=== PATIENT | female | born 1985 | race Caucasian/White ===

== ENCOUNTER 2016-08-13 12:07 | Emergency (ER) | payer OTHER ==
[~2016-08-13] VITALS: Ht 157.5 cm; Wt 127.5 kg
[2016-08-13 12:13] VITALS: BP 156/83
--- NOTE | 2016-08-13 12:55 | ED GENERAL ADULT ---
History of Present Illness General Chief Complaint: General Adult Stated Complaint: PT RT FOOT MAY SPRAIN AND SWOLLEN TONSIL Source: patient Exam Limitations: no limitations Vital Signs & Intake/Output Vital Signs & Intake/Output ED Intake and Output 08/14 0000 08/13 1200 Intake Total Output Total Balance Patient 281 lb Weight Allergies Coded Allergies: No Known Allergies (08/13/16) Triage Note: COMPLAINS OF R FOOT PAIN SINCE FRIDAY, DENIES INJURY BUT STTAES THAT SHE HAD BRUISING Triage Nurses Notes Reviewed? yes Onset: Gradual Duration: day(s): (5) Timing: no prior history Injury Environment: home Severity: mild Severity Numbers: 3 Modifying Factors: Improves With: immobilization. Worsens With: movement. : No Patient currently breastfeeds: No HPI: Patient is a 31-year-old female presenting to the emergency department with chief complaint of right-sided sore throat and tonsil enlargement lisping going on for the past 3-4 days as well as right foot pain has been going on for the past 5 days. Denies any injury to the foot. Denies any change in shoes. Symptoms are worse if she standing for long periods of time. Denied taking any Advil or Tylenol to help. Denies icing. No history of similar symptoms in the past. She reports that people in her home have upper respiratory infections currently. She denies any fevers or chills. No trouble swallowing or breathing. No chest pain or shortness of breath. No palpitations. (NAVEED LATHAM) Reconcile Medications Naproxen (Naprosyn) 500 MG TABLET 1 TAB PO BID PRN PAIN (PHILIP LIU,CARINA) Past History Travel History Traveled to [place] past 21 day No Medical History Any Pertinent Medical History? 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 No (NAVEED LATHAM) Review of Systems Review of Systems Constitutional: Reports: no symptoms. Comments Review of systems: See HPI, All other systems negative. Constitutional, no chills fever or weight loss HEENT: No visual changes Cardiovascular: No chest pain Skin, no jaundice no rashes Respiratory: No dyspnea cough sputum or hemoptysis GI: No nausea no vomiting Muscle skeletal: no back pain, no neck pain, Neurologic: No numbness no confusion Psych: No stress anxiety Immunology: No splenectomy or history of AIDS (NAVEED LATHAM) Physical Exam Physical Exam General Appearance: well developed/nourished, no apparent distress, alert, awake , comfortable, obese Comments: Well-developed well-nourished person in no acute distress HEENT: Pupils equally round and reactive to light and accommodation. Nose is atraumatic. External auditory canal and Tympanic membranes clear. Pharynx is mildly erythematous, slight tonsillar enlargement bilaterally, no peritonsillar abscess noted. No exudates. Neck: Supple, no lymphadenopathy, normal range of motion without pain or tenderness Back: Nontender, Cardiovascular: Regular rate and rhythms no murmurs rubs or gallops, normal JVP Respiratory: Chest nontender. No respiratory distress.breath sounds clear to auscultation bilaterally Extremity: No edema, no calf tenderness to palpation, normal and equal pulses. Mild tenderness to palpation of the dorsum of the right foot. No ecchymosis, no erythema or edema noted. Near full range of motion of right foot, somewhat limited secondary to pain. Pedal pulses are 2+ bilaterally. Capillary refills intact enlarged on his bilaterally. Neuro: Alert oriented x3, motor sensory normal Skin: No appreciable rash on exposed skin, skin is warm and dry. Psych: Mood and affect is normal, memory and judgment is normal. Core Measures ACS in differential dx? No CVA/TIA Diagnosis: No Severe Sepsis Present: No Septic Shock Present: No (NAVEED LATHAM) Progress Differential Diagnoses I considered the following diagnoses in my evaluation of the patient: Foot sprain, contusion, foot fracture, strep, viral tonsillitis, pharyngitis, viral syndrome, seasonal allergies Plan of Care: Orders Procedure Date/time Status THROAT CULTURE W/QUICK STREP 08/13 1216 Active XRY-FOOT COMPLETE, RIGHT 08/13 1215 Active Diagnostic Imaging: Viewed by Me: Radiology Read. Discussed w/RAD: Radiology Read. Radiology Impression: no acute abnormality, no fracture, no dislocation, no foreign body seen Initial ED EKG: none (NAVEED LATHAM) Departure Departure Time of Disposition: 1328 Disposition: HOME OR SELF CARE Condition: Stable Clinical Impression Primary Impression: Foot sprain Qualifiers: Encounter type: initial encounter Laterality: right Qualified Code: S93.601A - Unspecified sprain of right foot, initial encounter Secondary Impressions: Pharyngitis Qualifiers: Pharyngitis/tonsillitis etiology: unspecified etiology Qualified Code: J02.9 - Acute pharyngitis, unspecified Referrals: PATIENT HAS NO PRIMARY CARE DR (PCP/Family) Additional Instructions: Follow-up with your primary care Departure Forms: Customer Survey General Discharge Information Prescriptions: Current Visit Scripts Naproxen (Naprosyn) 1 TAB PO BID PRN PAIN #20 TAB (NAVEED LATHAM) PA/ROLLER REPAIRER Co-Sign Statement Statement: ED Attending supervision documentation- [] I saw and evaluated the patient. I have also reviewed all the pertinent lab results and diagnostic results. I agree with the findings and the plan of care as documented in the PA's/ROLLER REPAIRER's documentation. [X] I have reviewed the ED Record and agree with the PA's/ROLLER REPAIRER's documentation. [] Additions or exceptions (if any) to the PAs/ROLLER REPAIRER's note and plan are summarized below: [] (PHILIP LIU,CARINA) Critical Care Note Critical Care Note Critical Care Time: non-applicable (NAVEED LATHAM)
[2016-08-13] MEDS ORDERED: NAPROSYN500 M1 PO (13:31)
--- NOTE | 2016-08-13 13:32 | RADIOLOGY REPORT ---
EXAMINATION: XR FOOT, RIGHT CLINICAL INFORMATION: Pain and swelling of the right foot. COMPARISON: None TECHNIQUE: AP, lateral, and oblique views of the right foot. FINDINGS: Focal periosteal new bone formation is located at the neck of the second metatarsal. This has the appearance of a stress fracture. Otherwise the bones and joints are normal. A calcaneal plantar spur is also present. IMPRESSION: 1. Evidence of a stress fracture, distal shaft right second metatarsal. 2. Plantar spur of the calcaneus.
== END 2016-08-13 13:50 ==
LOC: ERH 12:07
DX: S93.601A Unspecified sprain of right foot, initial encounter (principal); J02.9 Acute pharyngitis, unspecified; X58.XXXA Exposure to other specified factors, initial encounter; Y93.9 Activity, unspecified; Y92.9 Unspecified place or not applicable
CPT/HCPCS: 73630-RT